=== PATIENT | male | born 1970 | race Caucasian/White ===

== ENCOUNTER → 2020-11-04 16:16 | Outpatient (CLI) | payer MEDICAID, SELFPAY | PROVIDERS: PCP Family Medicine; Referring Provider Family Medicine; Visit Provider Family Medicine | DX: R09.89 Other specified symptoms and signs involving the circulatory and respiratory systems (principal) | CPT/HCPCS: 87635; U0005; U0003 ==

== ENCOUNTER → 2023-04-11 | Outpatient (CLI) | payer MEDICAID, SELFPAY ==
--- NOTE | 2023-04-11 10:20 | RAD_ITS ---
STUDY: X-RAY - THORACIC SPINE REASON FOR EXAM: Male, 52 years old. CHRONIC THORACIC BACK PAIN TECHNIQUE: 3 view(s) of the thoracic spine were obtained. COMPARISON: None. FINDINGS: Normal kyphosis of the thoracic spine. There is no substantial scoliosis. Normal thoracic vertebrae and endplates. Normal disc space heights. The soft tissue structures are unremarkable. RAD/Thoracic Spine 3 Views IMPRESSION: Normal x-ray examination of the thoracic spine. Electronically Signed: Casimiro Morris MD at 10:34 EST ,
--- NOTE | 2023-04-11 10:20 | RAD_ITS ---
INDICATION: CHRONIC THORACIC BACK PAIN EXAMINATION/TECHNIQUE: X-RAY - XR Chest 2 Views COMPARISON: Thoracic spine radiograph dated April 11, 2023 FINDINGS: LINES/DEVICES: None. LUNGS: The lungs are hyperinflated. There is a vague round opacity within the left midlung. MEDIASTINUM AND CARDIOVASCULAR STRUCTURES: Cardiac silhouette not enlarged. Central airways and mediastinal contour are unremarkable. BONES AND SOFT TISSUES: Unremarkable. RAD/Chest PA and Lateral IMPRESSION: Vague round opacity within the left midlung that is likely secondary to compensation shadows however cannot exclude an underlying nodule or mass, recommend chest CT for further characterization. Hyperinflated lungs consistent with COPD. Electronically Signed: Sintia Valle MD at 18:05 EST ,
--- OUTSIDE RECORDS SUMMARY | 2023-04-11 19:21 | XMS RPT_ITS | CCD ---
Author Name Unknown Address [address] [facility] [address] [place] [address] Organization [facility] Care Team Providers Care Statistical Machine Mechanic Name Role Phone KENTON CLINE, CASSANDRA Contreras Primary Care Physician DR REYNA AGUILERA DO Attending Unavailable CASSANDRA FUNG MD Primary Care Unavailable Allergies Allergy Classification Reported Allergen(s) Allergy Type Date of Onset Reaction(s) Facility (2 sources) Penicillin; Translations: [penicillin] Drug Allergy [facility] Medications Current Medications Medication Drug Class(es) Dates Sig (Normalized) Sig (Original) acetaminophen 325 mg / HYDROcodone bitartrate 5 mg oral tablet (1 source) Opioid Agonist Start: 10-03-2021 End: 10-06-2021 take 1 tablet by mouth every six hours as needed for pain Sublette 325- 5 mg oral tablet Dose = 1 tab(s), Oral, q6h, PRN as needed for pain, X 3 day(s), # 12 tab(s), 0 Refill(s), Abdominal pain Colitis Start Date: 10/03/21 Stop Date: 10/06/21 Status: Ordered baclofen 20 mg oral tablet (1 source) gamma-Aminobutyric Acid-ergic Agonist Start: 02-20-2023 End: 02-25-2023 baclofen 20 mg oral tablet Dose : 20 mg = 1 tab(s), Oral, TID, # 15 tab(s), 0 Refill(s) Start Date: 02/20/23 Stop Date: 02/25/23 Status: Ordered ciprofloxacin 500 mg oral tablet (1 source) Quinolone Antimicrobial Start: 10-03-2021 End: 10-13-2021 Cipro 500 mg oral tablet Dose : 500 mg = 1 tab(s), Oral, q12h, X 10 day(s), # 20 tab(s), 0 Refill(s), 10/13/21 22:24:00 EDT, Abdominal pain Colitis Start Date: 10/03/21 Stop Date: 10/13/21 Status: Ordered dicyclomine hydrochloride 20 mg oral tablet (2 sources) Anticholinergic Start: 04-20-2019 take 1 tablet by mouth four times daily Bentyl use dicyclomine Dose : 20 mg =, Oral, QID, # 15 tab(s), 0 Refill(s) Start Date: 04/20/19 Status: Ordered docusate sodium 100 mg oral capsule (1 source) Start: 02-20-2023 Colace 100 mg oral capsule Dose : 100 mg = 1 cap(s), Oral, BID, # 20 cap(s), 0 Refill(s) Start Date: 02/20/23 Status: Ordered metroNIDAZOLE 500 mg oral tablet (1 source) Nitroimidazole Antimicrobial Start: 10-03-2021 End: 10-13-2021 metroNIDAZOLE 500 mg oral tablet Dose : 500 mg = 1 tab(s), Oral, q8h, X 10 day(s), # 30 tab(s), 0 Refill(s), 10/13/21 22:24:00 EDT, Abdominal pain Colitis Start Date: 10/03/21 Stop Date: 10/13/21 Status: Ordered ondansetron 4 mg disintegrating oral tablet (1 source) Serotonin-3 Receptor Antagonist Start: 10-03-2021 End: 10-07-2021 ondansetron 4 mg oral tablet, disintegrating Dose : 4 mg = 1 tab(s), Oral, q6h, X 4 day(s), # 16 tab(s), 0 Refill(s), 10/07/21 22:24:00 EDT, Abdominal pain Colitis Start Date: 10/03/21 Stop Date: 10/07/21 Status: Ordered Zofran ODT 4 mg oral tablet, disintegrating (2 sources) Start: 04-20-2019 Zofran ODT 4 mg oral tablet, disintegrating Dose : 4 mg = 1 tab(s), Oral, TID, # 10 tab(s), 0 Refill(s) Start Date: 04/20/19 Status: Ordered Problems Problem Classification Problem Date Documented Date Episodic/Chronic Abdominal pain (1 source) Abdominal pain; Translations: [Unspecified abdominal pain] Onset: 10-03-2021 Episodic Nausea and vomiting (1 source) Nausea; Translations: [Nausea] Onset: 10-03-2021 Episodic Noninfectious gastroenteritis (1 source) Noninfectious enteritis; Translations: [Noninfective gastroenteritis and colitis, unspecified] Onset: 10-03-2021 Episodic Results Test Name Value Interpretation Reference Range Facil ity Vital Signs Date Time Vital Sign Value Performing Clinician Eris yeager 02-20-2023 00:28-[address] REYNA AGUILERA DO [facility] 02-20-2023 00:28-0500 Body height 195.[address] REYNA AGUILERA DO [facility] 02-20-2023 00:28-0500 Body temperature 97.88 [degF] DR REYNA AGUILERA DO [facility] 02-20-2023 00:28-0500 Body weight [address] REYNA AGUILERA DO [facility] 02-20-2023 00:28-0500 Diastolic Blood Pressure Non-Invasive 74 mm[Hg] DR REYNA AGUILERA DO [facility] 02-20-2023 00:28-0500 Heart rate 55 /min DR REYNA AGUILERA DO [facility] 02-20-2023 00:28-0500 Respiratory rate 20 /min DR REYNA AGUILERA DO [facility] 02-20-2023 00:28-0500 Systolic Blood Pressure Non-Invasive 110 mm[Hg] DR REYNA AGUILERA DO [facility] 10-03-2021 22:55-0400 Diastolic blood pressure 79 mm[Hg] BALDOMERO HERNADEZ DO [facility] 10-03-2021 22:55-0400 Heart rate 51 /min BALDOMERO FROMMELT DO [facility] 10-03-2021 22:55-0400 Reason For Taking VItal Signs BALDOMERO FROMMELT DO [facility] 10-03-2021 22:55-0400 Respiratory rate 16 /min BALDOMERO FROMMELT DO [facility] 10-03-2021 22:55-0400 Systolic blood pressure 121 mm[Hg] BLADOMERO FROMMELT DO [facility] 10-03-2021 21:37-0400 Diastolic blood pressure 78 mm[Hg] BALDOMERO FROMMELT DO [facility] 10-03-2021 21:37-0400 Heart rate 52 /min BALDOMERO FROMMELT DO [facility] 10-03-2021 21:37-0400 Reason For Taking VItal Signs BALDOMERO FROMMELT DO [facility] 10-03-2021 21:37-0400 Respiratory rate 16 /min BALDOMERO FROMMELT DO [facility] 10-03-2021 21:37-0400 Systolic blood pressure 125 mm[Hg] BALDOMERO FROMMELT DO [facility] 10-03-2021 20:03-0400 Diastolic blood pressure 74 mm[Hg] BALDOMERO FROMMELT DO [facility] 10-03-2021 20:03-0400 Heart rate 46 /min BALDOMERO FROMMELT DO [facility] 10-03-2021 20:03-0400 Reason For Taking VItal Signs BALDOMERO FROMMELT DO [facility] 10-03-2021 20:03-0400 Respiratory rate 16 /min BALDOMERO HERNADEZ DO [facility] 10-03-2021 20:03-0400 Systolic blood pressure 116 mm[Hg] BALDOMERO HERNADEZ DO [facility] 10-03-2021 19:01-0400 Body temperature 98.42 [degF] BALDOMERO HERNADEZ DO [facility] 10-03-2021 19:01-0400 Heart rate 73 /[facility] Encounters Encounter Date Encounter Type Care Provider Facility Start: 02-20-2023 End: 02-20-2023 Emergency department patient visit DR REYNA AGUILERA DO [facility] Start: 02-19-2023 End: 02-20-2023 Emergency department patient visit DR REYNA AGUILERA DO Facility:B Start: 10-03-2021 End: 10-03-2021 Emergency department patient visit BALDOMERO HERNADEZ DO [facility] Payers Date Payer Category Payer Private Health Insurance [id number] 1970 Unknown [id number] Social History Date Type Detail Facility Start: 04-20-2019 Tobacco smoking status Heavy t obacco smoker (finding) [facility] Sex Assigned At Male [facility] Functional Status Date Assessment Result Facility 02-20-2023 Functional Status Independent [facility] 10-03-2021 Functional Status Activity Jet tance Independent [facility] 10-03-2021 Functional Status Standard Safet y ID band on, Allergy Band on, Call device within reach, Bed in low position, Wheels locked, Upper/Half-Length side-rails up, Bedside Cart Locked, Visitor at bedside, Safety level maintained [facility] 10-03-2021 [facility] Mental Status Date Assessment Result Facility 02-20-2023 Mental Status Orientation Oriented x 4 [facility] 02-20-2023 Mental [facility] 10-03-2021 Mental Status Orientation Oriented x 4 [facility] 10-03-2021 Mental [facility] 10-03-[facility]21 Mental Status [facility] Hospital Discharge instructions 02-20-2023 Note Date & Type Note Facility 02-20-2023 Hospital Discharg e instructions Patient Education 02/20/2023 01:00:27 How a Hernia Develops How a Hernia Develops Although a hernia bulge may appear suddenly, hernias often take years to develop. They grow larger as pressure inside the body presses the intestines or other tissues out through a weak area in the abdominal wall, often at the belly button or a site of previous surgery. With time, these tissues can bulge out beneath the skin. Stages of hernia development The wall weakens or tears. The abdominal lining bulges out through a weak area and begins to form a hernia sac. The sac may contain fat, intestine, or other tissues. At this point, the hernia may or may not cause a visible bulge. The intestine pushes into the sac. As the intestine pushes further into the sac, it forms a visible bulge. The bulge may flatten when you lie down or push against it. This is called a reducible hernia and does not cause any immediate danger. The intestine may become trapped. The sac containing the intestine may become trapped by muscle (incarcerated). If this happens, you won t be able to flatten the bulge. You may also have pain. Prompt treatment is needed. The intestine may become strangulated. If the intestine is tightly trapped, it becomes strangulated. The strangulated area loses blood supply and may . This can cause severe pain and block the intestine. Emergency surgery is needed. [id number] [employer]. [address] [place] [address], [place] [address]. All rights reserved. This information is not intended as a substitute for professional medical care. Always follow your healthcare professional's instructions. Follow Up Care 02/20/2023 00:06:49 With:JOSSY STALLINGS MD, KAYLAN/oJse D, Surgery Address: [address] [id number] When:2-4 days With:CASSANDRA FUNG MD Address: [facility] [address] [place] [address]- When:2-4 days [facility] Clinical Note 02-20-2023 Note Date & Type Note Facility 02-20-2023 Note Discharge Instructions Thank you for allowing [facility] to assist you with your healthcare needs. The following is important discharge information regarding your hospital visit. Diagnosis from Today's Visit Groin pain Hip pain-swelling What to Do Next Instructions from Your Care Team No qualifying data available. Post Acute Orders No qualifying data available. You Need to Schedule the Following Appointments Follow Up with JOSSY STALLINGS MD, KAYLAN/Jose D, Surgery When Within 2-4 days Where: [address] [phone] Follow Up with CASSANDRA FUNG MD When Within 2-4 days Where: [facility] [address] [place] [address]- Allergies penicillin Medications Please ask your primary doctor or pharmacist before taking any other medication not listed, including over the counter drugs, herbal medications, vitamins and or supplements as they may interact with your home medications. What How Much When Instructions Last Dose New baclofen (baclofen 20 mg oral tablet) 1 tab(s) by mouth Three (3) times a day Duration: 5 Days Printed Prescription New docusate (Colace 100 mg oral capsule) 1 cap by mouth Two (2) times a day Printed Prescription Unchanged dicyclomine (Bentyl use dicyclomine ) 20 Milligram by mouth Four (4) times a day Unchanged ondansetron (Zofran ODT 4 mg oral tablet, disintegrating) 1 tab(s) by mouth Three (3) times a day Please take this list to your next doctor s visit. Bring all medications you take, including over the counter medications, herbals and other supplements with you to your doctor s visit. Patients and families are reminded to discard old lists and to update any records with all medication providers or retail pharmacies. Medication Leaflets baclofen (oral) (EVA margaux fen) Fleqsuvy, Lyvispah, Ozobax What is the most important information I should know about baclofen? Use only as directed. Tell your doctor if you use other medicines or have other medical conditions or allergies. What is baclofen? Baclofen is used in adults and children at least 12 years old to treat muscle pain, spasms, and stiffness in people with multiple sclerosis or spinal cord injury or disease. Baclofen may also be used for purposes not listed in this medication guide. What should I discuss with my healthcare provider before taking baclofen? You should not use baclofen if you are allergic to it. Tell your doctor if you have ever had: mental illness or psychosis; epilepsy or other seizure disorder; problems with balance; high blood pressure, or fast heart rate; a stroke or blood clot; or kidney disease. Using baclofen may increase your risk of developing an ovarian cyst. Talk with your doctor about your own risk. Tell your doctor if you are or plan to become , or or plan to breastfeed. If you take baclofen while or , withdrawal symptoms such as tremors, stiff muscles, or seizure may occur in the baby. How should I take baclofen? Follow all directions on your prescription label and read all medication guides or instruction sheets. Your doctor may occasionally change your dose. Use the medicine exactly as directed. Shake the oral suspension (liquid). Measure a dose with the supplied measuring device (not a kitchen spoon). Shake and pour the entire oral granules packet to dissolve in your mouth or swallow whole at once, with or without liquids. You may also mix the granules with liquids (milk, or apple juice) or soft food (apple sauce, yogurt, or pudding). The oral granules can also be given through a feeding tube. Ask your doctor or pharmacist if you do not understand these instructions. Call your doctor if your symptoms do not improve, or if they get worse. You may have withdrawal symptoms if you stop using baclofen suddenly. Ask your doctor before stopping the medicine. Store the oral suspension (liquid) at room temperature away from moisture and heat. Throw Fleqsuvy away after 2 months of first opening. Store Ozobax in the refrigerator, do not freeze. What happens if I miss a dose? Take the medicine as soon as you can, but skip the missed dose if it is almost time for your next dose. Do not take two doses at one time. What happens if I overdose? Seek emergency medical attention or call the Poison Help line at . Overdose symptoms may include increasing drowsiness, dizziness, sleepiness, trouble focusing on objects, shallow breathing, seizure, or muscle weakness leading to loss of consciousness. What should I avoid while taking baclofen? Avoid drinking alcohol. Avoid driving or hazardous activity until you know how this medicine will affect you. Your reactions could be impaired. Do not share this medicine with another person, even if they have the same symptoms you have. What are the possible side effects of baclofen? Get emergency medical help if you have signs of an allergic reaction: hives; difficult breathing; swelling of your face, lips, tongue, or throat. Call your doctor at once if you have: severe drowsiness, breathing problems; confusion, hallucinations; muscle weakness, itching, tingling, or twitching in your hands, arms, feet, or legs; or fever. Common side effects may include: drowsiness, dizziness, weakness, or tiredness. This is not a complete list of side effects and others may occur. Call your doctor for medical advice about side effects. You may report side effects to FDA at 4-518-WME-1078. What other drugs will affect baclofen? Using baclofen with other drugs that make you drowsy can worsen this effect. Ask your doctor before using opioid medication, a sleeping pill, a muscle relaxer, or medicine for anxiety or seizures. Other drugs may affect baclofen, including prescription and figp-oyi-lcazezs medicines, vitamins, and herbal products. Tell your doctor about all other medicines you use. Where can I get more information? Your doctor or pharmacist can provide more information about baclofen. Remember, keep this and all other medicines out of the reach of children, never share your medicines with others, and use this medication only for the indication prescribed. Every effort has been made to ensure that the information provided by [employer]. ('[employer]') is accurate, up-to-date, and complete, but no guarantee is made to that effect. Drug information contained herein may be time sensitive. [employer] information has been compiled for use by healthcare practitioners and consumers in the [place] and therefore [employer] does not warrant that uses outside of the [place] are appropriate, unless specifically indicated otherwise. [employer] drug information does not endorse drugs, diagnose patients or recommend therapy. [employer] drug information is an informational resource designed to assist licensed healthcare practitioners in caring for their patients and/or to serve consumers viewing this service as a supplement to, and not a substitute for, the expertise, skill, knowledge and judgment of healthcare practitioners. The absence of a warning for a given drug or drug combination in no way should be construed to indicate that the drug or drug combination is safe, effective or appropriate for any given patient. [employer] does not assume any responsibility for any aspect of healthcare administered with the aid of information [employer] provides. The information contained herein is not intended to cover all possible uses, directions, precautions, warnings, drug interactions, allergic reactions, or adverse effects. If you have questions about the drugs you are taking, check with your doctor, nurse or pharmacist. Copyright 5448-9292 [employer]. Version: 11.13. Revision Date: 10/17/2022. docusate (oral/rectal) (DOK ue sate) Colace, Colace Clear, Docu Soft, Doculase, Docusate Mini, DocuSol Kids, DOK, DSS, Dulcolax Stool Softener, Enemeez Mini, Pedia-Lax Stool Softener, Rodriguez Stool Softener, Silace, Simon-Q-Lax What is the most important information I should know about docusate? You should not use docusate if you also use mineral oil, unless your doctor tells you to. What is docusate? Docusate is a stool softener that makes bowel movements softer and easier to pass. Docusate is used to relieve occasional constipation (irregularity). There are many brands and forms of docusate available. Not all brands are listed on this leaflet. Docusate may also be used for purposes not listed in this medication guide. What should I discuss with my healthcare provider before using docusate? You should not use docusate if you are allergic to it. Ask a doctor or pharmacist if this medicine is safe to use if you have: stomach pain; nausea; vomiting; or a sudden change in bowel habits that lasts over 2 weeks. Ask a doctor before using this medicine if you are or . Do not give this medicine to a child without medical advice. How should I use docusate? Use exactly as directed on the label, or as prescribed by your doctor. Drink plenty of liquids while you are using docusate. Measure liquid medicine carefully. Use the dosing syringe provided, or use a medicine dose-measuring device (not a kitchen spoon). Do not take the rectal enema by mouth. Rectal medicine is for use only in the rectum. Wash your hands before and after using the enema. To use the enema, lie on your left side with your left leg extended and your right leg slightly bent. Remove the cap from the applicator tip and gently insert the tip into your rectum. Slowly squeeze the bottle to empty the contents into the rectum. After using the enema, lie down on your left side for at least 30 minutes to allow the liquid to distribute throughout your intestines. Avoid using the bathroom, and hold in the enema at least 1 hour, or all night if possible. Read and carefully follow any Instructions for Use provided with your medicine. Ask your doctor or pharmacist if you do not understand these instructions. Docusate generally produces bowel movement in 12 to 72 hours. Call your doctor if your symptoms do not improve after 72 hours. You should not use docusate for longer than 1 week, unless your doctor tells you to. Store at room temperature away from moisture, light, and heat. Do not freeze liquid medicine. What happens if I miss a dose? Since docusate is used when needed, you may not be on a dosing schedule. Skip any missed dose if it's almost time for your next dose. Do not use two doses at one time. What happens if I overdose? Seek emergency medical attention or call the Poison Help line at . What should I avoid while using docusate? Avoid using mineral oil, unless told to do so by a doctor. What are the possible side effects of docusate? Get emergency medical help if you have signs of an allergic reaction: hives; difficult breathing; swelling of your face, lips, tongue, or throat. Stop using docusate and call your doctor at once if: you have rectal bleeding; no bowel movement occurs after using a laxative; you need to use a stool softener for more than 1 week; or rash occurs. Less serious side effects may be more likely, and you may have none at all. This is not a complete list of side effects and others may occur. Call your doctor for medical advice about side effects. You may report side effects to FDA at 8-828-DHT-5822. What other drugs will affect docusate? Other drugs may affect docusate, including prescription and kzqj-xwb-rwutxix medicines, vitamins, and herbal products. Tell your doctor about all other medicines you use. Where can I get more information? Your pharmacist can provide more information about docusate. Remember, keep this and all other medicines out of the reach of children, never share your medicines with others, and use this medication only for the indication prescribed. Every effort has been made to ensure that the information provided by [employer]. ('[employer]') is accurate, up-to-date, and complete, but no guarantee is made to that effect. Drug information contained herein may be time sensitive. [employer] information has been compiled for use by healthcare practitioners and consumers in the [place] and therefore [employer] does not warrant that uses outside of the [place] are appropriate, unless specifically indicated otherwise. [employer] drug information does not endorse drugs, diagnose patients or recommend therapy. [employer] drug information is an informational resource designed to assist licensed healthcare practitioners in caring for their patients and/or to serve consumers viewing this service as a supplement to, and not a substitute for, the expertise, skill, knowledge and judgment of healthcare practitioners. The absence of a warning for a given drug or drug combination in no way should be construed to indicate that the drug or drug combination is safe, effective or appropriate for any given patient. [employer] does not assume any responsibility for any aspect of healthcare administered with the aid of information [employer] provides. The information contained herein is not intended to cover all possible uses, directions, precautions, warnings, drug interactions, allergic reactions, or adverse effects. If you have questions about the drugs you are taking, check with your doctor, nurse or pharmacist. Copyright 4411-0448 [employer]. Version: 7.01. Revision Date: 09/08/2022. Education Materials How a Hernia Develops Although a hernia bulge may appear suddenly, hernias often take years to develop. They grow larger as pressure inside the body presses the intestines or other tissues out through a weak area in the abdominal wall, often at the belly button or a site of previous surgery. With time, these tissues can bulge out beneath the skin. Stages of hernia development The wall weakens or tears. The abdominal lining bulges out through a weak area and begins to form a hernia sac. The sac may contain fat, intestine, or other tissues. At this point, the hernia may or may not cause a visible bulge. The intestine pushes into the sac. As the intestine pushes further into the sac, it forms a visible bulge. The bulge may flatten when you lie down or push against it. This is called a reducible hernia and does not cause any immediate danger. The intestine may become trapped. The sac containing the intestine may become trapped by muscle (incarcerated). If this happens, you won t be able to flatten the bulge. You may also have pain. Prompt treatment is needed. The intestine may become strangulated. If the intestine is tightly trapped, it becomes strangulated. The strangulated area loses blood supply and may . This can cause severe pain and block the intestine. Emergency surgery is needed. [id number] [employer]. [address] [place] [address]. All rights reserved. This information is not intended as a substitute for professional medical care. Always follow your healthcare professional's instructions. Additional Information VACCINATE! IT SAVES LIVES! Members of the community who have not yet received the COVID-19 vaccine and would like to receive it can visit one of [facility] vaccine clinics. There are many vaccine clinic locations within the [facility]. For locations and available times, please visit [email or web address] It is important to note that some COVID mobile vaccine clinics are held outdoors and may be canceled in rainy or stormy conditions. To learn more about pediatric vaccinations (ages 5-11), we invite you to visit the [facility] webpage. https://www.[employer]ials.org/pages/2 750-Pnrcz-Fcpeulkobdm-Frequently-Asked -Questions.html To learn more about the COVID-19 vaccine, we invite you to visit the CDC website for a list of frequently asked questions. https://www.cdc.gov/coronavirus/2019-n cov/vaccines/faq.html [employer] Patient Portal Access Instructions: Stay connected with your healthcare team and access your personal medical information anytime with the [employer] Patient Portal. If you would like a full copy of your medical records please contact the [facility] Medical Records Department Sunday through Sunday between 8a.m. and 4:30p.m. Please follow the directions below to access the portal: 1.Access the email account you provided upon registration to the hospital.2.Look for an invitation email from [facility].3.Open the email and access the invitation link: Accept Invitation to [employer]4.Fill in the required liang to create your account. Sign into [email or web address] with your username and password that you created in the above steps to stay up to date. You can then view a summary of results, a summary of your visits, and the ability to download your summaries to your computer or send the information securely to a physician. Remember that your healthcare information is confidential, so carefully consider who you will allow to register on the [employer] Patient Portal for access to your information. You can also access the [employer] Patient Portal on the [facility] jennifer. Simply click on Health Records under Health Data and then click on the [employer] logo. HOW TO SAFELY DISPOSE OF PRESCRIPTION MEDICATIONS Please use one of the following methods to safely dispose of your unused medications. 1.Use a drug disposal kit: the drug disposal pouch allows you to safely discard your old and unused drugs. Ask your nurse to give you one when you are discharged.2.Visit a local take-back location: Many local pharmacies and police departments have programs that collect old and unwanted prescription drugs. Call your local pharmacy or go to http://Jaree.Pulmologix/9A2Ch8g to find one close to you.3.Make use of household items: Use cat litter or old coffee grounds to dispose medications if other options are not available. Mix your drugs with these household products, seal them in an airtight container and throw it into the garbage. Call [facility]: [phone] to be sure your drugs can be disposed of in this way. Some medicines may require a different approach.4.Never flush your medications down the toilet. IF YOU HAVE BEEN PRESCRIBED AN OPIOIDS FOR PAIN If you have been prescribed an opioid (such as hydrocodone, oxycodone or morphine), it is critical to understand the possible side effects and risks of opioid pain medications. Even when taken as directed, opioids can have several side effects including: Tolerance, meaning you might need to take more of a medication for the same pain relief. Nausea, vomiting and/or constipation. Sleepiness, dizziness, dry mouth, confusion, depression or itching. Physical dependence, meaning you have withdrawal symptoms when a medication is stopped ? this can develop within a few days. KNOW YOUR RESPONSIBILITIES It is important to know exactly how much and how often to take the opioid pain medications you are prescribed. Never take opioids in higher amounts or more often than prescribed. Do not combine opioids with alcohol or other drugs that cause drowsiness, such as benzodiazepines, also known as benzos, including diazepam and alprazolam, muscle relaxants or sleep aids. Never sell or share prescription opioids. This is illegal. Store opioids in a secure place and out of reach of others (including children, family, friends and visitors). The last page(s) of this document has been signed and retained as a CHART COPY Signatures Patient Education Materials How a Hernia Develops Medication Leaflets baclofen (oral), docusate (oral/rectal) My discharge plan and instructions have been reviewed and explained to me and IASIYA CHET understand my current condition and have read and understand these discharge instructions. I have received a written copy of the plan/instructions. If I have questions, I am aware that I should contact my doctor. Patient/Foundry Worker Signature: _ Date/Time: Relationship to Patient: Witness Name/Signature: Date/Time: [facility] Discharge instructions 10-04-2021 Note Date & Type Note Facility 10-04-2021 Hospital Discharg e instructions Patient Education 10/03/2021 22:25:13 Diverticulitis Diverticulitis Some people get pouches along the wall of the colon as they get older. The pouches, called diverticuli, usually cause no symptoms. If the pouches become blocked, you can get an infection. This infection is called diverticulitis. It causes pain in your lower abdomen and fever. If not treated, it can become a serious condition, causing an abscess to form inside the pouch. The abscess may block the intestinal tract even or rupture, spreading infection throughout the abdomen. When treatment is started early, oral antibiotics alone may be enough to cure diverticulitis. This method is tried first. But, if you don't improve or if your condition gets worse while using oral antibiotics, you may need to be admitted to the hospital for IV antibiotics. Severe cases may require surgery. Home care The following guidelines will help you care for yourself at home: During the acute illness, rest and follow your healthcare provider's instructions about diet. Sometimes you will need to follow a clear liquid diet to rest your bowel. Once your symptoms are better, you may be told to follow a low-fiber diet for some time. Include foods like: oFlake cereal, mashed potatoes, pancakes, waffles, pasta, white bread, rice, applesauce, bananas, eggs, fish, poultry, tofu, and cooked soft vegetables Take antibiotics exactly as instructed. Don't miss any doses or stop taking the medication, even if you feel better. Monitor your temperature and tell your healthcare provider if you have rising temperatures. Preventing future attacks Once you have an episode of diverticulitis, you are at risk for having it again. After you have recovered from this episode, you may be able to lower your risk by eating a high-fiber diet (20 gm/day to 35 gm/day of fiber). This cleans out the colon pouches that already exist and may prevent new ones from forming. Foods high in fiber include fresh fruits and edible peelings, raw or lightly cooked vegetables, whole grain cereals and breads, dried beans and peas, and bran. Other steps that can help prevent future attacks include: Take your medicines, such as antibiotics, as your healthcare provider says. Drink 6 to 8 glasses of water every day, unless told otherwise. Use a heating pad or hot water bottle to help abdominal cramping or pain. Begin an exercise program. Ask your healthcare provider how to get started. You can benefit from simple activities such as walking or gardening. Treat diarrhea with a bland diet. Start with liquids only; then slowly add fiber over time. Watch for changes in your bowel movements (constipation to diarrhea). Avoid constipation by eating a high fiber diet and taking a stool softener if needed. Get plenty of rest and sleep. Follow-up care Follow up with your healthcare provider as advised or sooner if you are not getting better in the next 2 days. When to seek medical advice Call your healthcare provider right away if any of these occur: Fever of 100.4 F (38 C) or higher, or as directed by your healthcare provider Repeated vomiting or swelling of the abdomen Weakness, dizziness, light-headedness Pain in your abdomen that gets worse, severe, or spreads to your back Pain that moves to the right lower abdomen Rectal bleeding (stools that are red, black or maroon color) Unexpected vaginal bleeding [id number] [employer]. [address] [place] [address]. All rights reserved. This information is not intended as a substitute for professional medical care. Always follow your healthcare professional's instructions. Follow Up Care 10/03/2021 18:50:42 With:ARTIS LEE MD Address: [facility] [address] [place] [phone] When:2-4 days With:CASSANDRA FUNG MD Address: [facility] [address] [place] [address]- When:2-4 days [facility] Emergency department Discharge summary 10-03-2021 Note Date & Type Note Facility 10-03-2021 Emergency department Discharge summary Discharge Instructions Thank you for allowing [facility] to assist you with your healthcare needs. The following is important discharge information regarding your hospital visit. Diagnosis from Today's Visit Abdominal pain Colitis Nausea Vomiting What to Do Next Instructions from Your Care Team No qualifying data available. Post Acute Orders No qualifying data available. You Need to Schedule the Following Appointments Follow Up with ARTIS LEE MD When Within 2-4 days Where: [facility] [address] [place] [address]- [phone] Follow Up with CASSANDRA FUNG MD When Within 2-4 days [facility] [address] [place] [address]- Allergies penicillin Medications Please ask your primary doctor or pharmacist before taking any other medication not listed, including over the counter drugs, herbal medications, vitamins and or supplements as they may interact with your home medications. What How Much When Why Instructions Last Dose New acetaminophen-hydrocodone (Sublette 325- 5 mg oral tablet) 1 tab(s) by mouth Every 6 hours as needed for as needed for pain Abdominal pain Colitis Duration: 3 Days Printed Prescription New ciprofloxacin (Cipro 500 mg oral tablet) 1 tab(s) by mouth Every 12 hours Abdominal pain Colitis Duration: 10 Days Printed Prescription New metroNIDAZOLE (metroNIDAZOLE 500 mg oral tablet) 1 tab(s) by mouth Every 8 hours Abdominal pain Colitis Duration: 10 Days Printed Prescription Changed ondansetron (ondansetron 4 mg oral tablet, disintegrating) 1 tab(s) by mouth Every 6 hours Abdominal pain Colitis Duration: 4 Days Printed Prescription Changed ondansetron (Zofran ODT 4 mg oral tablet, disintegrating) 1 tab(s) by mouth Three (3) times a day Unchanged dicyclomine (Bentyl use dicyclomine ) 20 Milligram by mouth Four (4) times a day Please take this list to your next doctor s visit. Bring all medications you take, including over the counter medications, herbals and other supplements with you to your doctor s visit. Patients and families are reminded to discard old lists and to update any records with all medication providers or retail pharmacies. Education Materials Diverticulitis Some people get pouches along the wall of the colon as they get older. The pouches, called diverticuli, usually cause no symptoms. If the pouches become blocked, you can get an infection. This infection is called diverticulitis. It causes pain in your lower abdomen and fever. If not treated, it can become a serious condition, causing an abscess to form inside the pouch. The abscess may block the intestinal tract even or rupture, spreading infection throughout the abdomen. When treatment is started early, oral antibiotics alone may be enough to cure diverticulitis. This method is tried first. But, if you don't improve or if your condition gets worse while using oral antibiotics, you may need to be admitted to the hospital for IV antibiotics. Severe cases may require surgery. Home care The following guidelines will help you care for yourself at home: During the acute illness, rest and follow your healthcare provider's instructions about diet. Sometimes you will need to follow a clear liquid diet to rest your bowel. Once your symptoms are better, you may be told to follow a low-fiber diet for some time. Include foods like: oFlake cereal, mashed potatoes, pancakes, waffles, pasta, white bread, rice, applesauce, bananas, eggs, fish, poultry, tofu, and cooked soft vegetables Take antibiotics exactly as instructed. Don't miss any doses or stop taking the medication, even if you feel better. Monitor your temperature and tell your healthcare provider if you have rising temperatures. Preventing future attacks Once you have an episode of diverticulitis, you are at risk for having it again. After you have recovered from this episode, you may be able to lower your risk by eating a high-fiber diet (20 gm/day to 35 gm/day of fiber). This cleans out the colon pouches that already exist and may prevent new ones from forming. Foods high in fiber include fresh fruits and edible peelings, raw or lightly cooked vegetables, whole grain cereals and breads, dried beans and peas, and bran. Other steps that can help prevent future attacks include: Take your medicines, such as antibiotics, as your healthcare provider says. Drink 6 to 8 glasses of water every day, unless told otherwise. Use a heating pad or hot water bottle to help abdominal cramping or pain. Begin an exercise program. Ask your healthcare provider how to get started. You can benefit from simple activities such as walking or gardening. Treat diarrhea with a bland diet. Start with liquids only; then slowly add fiber over time. Watch for changes in your bowel movements (constipation to diarrhea). Avoid constipation by eating a high fiber diet and taking a stool softener if needed. Get plenty of rest and sleep. Follow-up care Follow up with your healthcare provider as advised or sooner if you are not getting better in the next 2 days. When to seek medical advice Call your healthcare provider right away if any of these occur: Fever of 100.4 F (38 C) or higher, or as directed by your healthcare provider Repeated vomiting or swelling of the abdomen Weakness, dizziness, light-headedness Pain in your abdomen that gets worse, severe, or spreads to your back Pain that moves to the right lower abdomen Rectal bleeding (stools that are red, black or maroon color) Unexpected vaginal bleeding [id number] [employer]. [address] [place] [address]. All rights reserved. This information is not intended as a substitute for professional medical care. Always follow your healthcare professional's instructions. Additional Information VACCINATE! IT SAVES LIVES! Members of the community who have not yet received the COVID-19 vaccine and would like to receive it can visit one of [facility] vaccine clinics. There are many vaccine clinic locations within the [facility]. For locations and available times, please visit [email or web address]. It is important to note that some COVID mobile vaccine clinics are held outdoors and may be canceled in rainy or stormy conditions. To learn more about pediatric vaccinations (ages 5-11), we invite you to visit the [facility] webpage. https://www.[facility].org/pa ges/6974-Sgcct-Ixzyvkbngrh-Freque fgag-Qicso-Qvwplnwsp.html To learn more about the COVID-19 vaccine, we invite you to visit the [facility] website for a list of frequently asked questions. [email or web address]/assets/Eri ud-bny-Lqmdcmnz/mwgdg-[email or web address]-Sqv quently_Asked-Questions.pdf [facility] Patient Portal Access Instructions: Stay connected with your healthcare team and access your personal medical information anytime with the [facility] Patient Portal. If you would like a full copy of your medical records please contact the [facility] Medical Records Department Sunday through Sunday between 8a.m. and 4:30p.m. Please follow the directions below to access the portal: 1.Access the email account you provided upon registration to the [facility].2.Look for an invitation email from [facility].3.Open the email and access the invitation link: Accept Invitation to [employer]4.Fill in the required liang to create your account. Sign into [email or web address] with your username and password that you created in the above steps to stay up to date. You can then view a summary of results, a summary of your visits, and the ability to download your summaries to your computer or send the information securely to a physician. Remember that your healthcare information is confidential, so carefully consider who you will allow to register on the [employer] Patient Portal for access to your information. You can also access the [employer] Patient Portal on the [employer]. Simply click on Health Records under Health Data and then click on the [employer] logo. HOW TO SAFELY DISPOSE OF PRESCRIPTION MEDICATIONS Please use one of the following methods to safely dispose of your unused medications. 1.Use a drug disposal kit: the drug disposal pouch allows you to safely discard your old and unused drugs. Ask your nurse to give you one when you are discharged.2.Visit a local take-back location: Many local pharmacies and police departments have programs that collect old and unwanted prescription drugs. Call your local pharmacy or go to http://Jaree.Pulmologix/8Q0Ac0q to find one close to you.3.Make use of household items: Use cat litter or old coffee grounds to dispose medications if other options are not available. Mix your drugs with these household products, seal them in an airtight container and throw it into the garbage. Call [facility]: [phone] to be sure your drugs can be disposed of in this way. Some medicines may require a different approach.4.Never flush your medications down the toilet. IF YOU HAVE BEEN PRESCRIBED AN OPIOIDS FOR PAIN If you have been prescribed an opioid (such as hydrocodone, oxycodone or morphine), it is critical to understand the possible side effects and risks of opioid pain medications. Even when taken as directed, opioids can have several side effects including: Tolerance, meaning you might need to take more of a medication for the same pain relief. Nausea, vomiting and/or constipation. Sleepiness, dizziness, dry mouth, confusion, depression or itching. Physical dependence, meaning you have withdrawal symptoms when a medication is stopped ? this can develop within a few days. KNOW YOUR RESPONSIBILITIES It is important to know exactly how much and how often to take the opioid pain medications you are prescribed. Never take opioids in higher amounts or more often than prescribed. Do not combine opioids with alcohol or other drugs that cause drowsiness, such as benzodiazepines, also known as benzos, including diazepam and alprazolam, muscle relaxants or sleep aids. Never sell or share prescription opioids. This is illegal. Store opioids in a secure place and out of reach of others (including children, family, friends and visitors). The last page(s) of this document has been signed and retained as a CHART COPY Signatures Patient Education Materials Diverticulitis Medication Leaflets My discharge plan and instructions have been reviewed and explained to me and I,NEREIDA BRADEN understand my current condition and have read and understand these discharge instructions. I have received a written copy of the plan/instructions. If I have questions, I am aware that I should contact my doctor. Patient/Foundry Worker Signature: Date/Time: Relationship to Patient: ____ Witness Name/Signature: Date/Time: [facility] Clinical Note 10-03-2021 Note Date & Type Note Facility 10-03-2021 Note ORIGINAL EXAMINATION: CT OF THE ABDOMEN AND PELVIS WITH CONTRAST 10/03/2021 8:48 pm TECHNIQUE: CT of the abdomen and pelvis was performed with the administration of intravenous contrast. Multiplanar reformatted images are provided for review. Automated exposure control, iterative reconstruction, and/or weight based adjustment of the mA/kV was utilized to reduce the radiation dose to as low as reasonably achievable. COMPARISON: CT abdomen pelvis 04/20/2019. 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 This has been stable since prior exam from 2019. Focal fatty infiltration along the falciform ligament. Otherwise, the liver, gallbladder, spleen, adrenal glands, pancreas are unremarkable. There are bilaterally symmetric nephrograms without hydronephrosis. Unremarkable bladder and prostate gland. Presumed vasectomy postprocedural changes. Lack of mesenteric fat limits evaluation of this exam. The small and large bowel are of normal caliber. The appendix is not definitely visualized. Question mild pericolonic inflammatory stranding along the descending colon. No free air. No pathologically enlarged lymph nodes. The aorta is nonaneurysmal. The IVC is distended, most likely secondary to patient's hydration status. No acute osseous abnormality. IMPRESSION: Suspect mild pericolonic inflammatory stranding along descending colon which can be seen in the setting of mild colitis, correlate for any symptoms. I have personally reviewed the images of this examination and agree with the resident's findings and interpretation. Interpreted by: Carlos Lazcano Preliminary Report By: Angel Toledo Electronically signed By Carlos Lazcano Dictated Date: 10/03/2021 10:04:25 PM Prelim Date: 10/03/2021 10:16:14 PM Sign Date: 10/03/2021 10:39:21 PM Ordering Provider: [facility] [address] [facility] Clinical Note 10-03-2021 Note Date & Type Note Facility 10-03-2021 Note ORIGINAL EXAMINATION: CT OF THE ABDOMEN AND PELVIS WITH CONTRAST 10/03/2021 8:48 pm TECHNIQUE: CT of the abdomen and pelvis was performed with the administration of intravenous contrast. Multiplanar reformatted images are provided for review. Automated exposure control, iterative reconstruction, and/or weight based adjustment of the mA/kV was utilized to reduce the radiation dose to as low as reasonably achievable. COMPARISON: CT abdomen pelvis 04/20/2019. 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 This has been stable since prior exam from 2019. Focal fatty infiltration along the falciform ligament. Otherwise, the liver, gallbladder, spleen, adrenal glands, pancreas are unremarkable. There are bilaterally symmetric nephrograms without hydronephrosis. Unremarkable bladder and prostate gland. Presumed vasectomy postprocedural changes. Lack of mesenteric fat limits evaluation of this exam. The small and large bowel are of normal caliber. The appendix is not definitely visualized. Question mild pericolonic inflammatory stranding along the descending colon. No free air. No pathologically enlarged lymph nodes. The aorta is nonaneurysmal. The IVC is distended, most likely secondary to patient's hydration status. No acute osseous abnormality. IMPRESSION: Suspect mild pericolonic inflammatory stranding along descending colon which can be seen in the setting of mild colitis, correlate for any symptoms. I have personally reviewed the images of this examination and agree with the resident's findings and interpretation. Interpreted by: Carlos Lazcano Preliminary Report By: Angel Toledo Electronically signed By Carlos Lazcano Dictated Date: 10/03/2021 10:04:25 PM Prelim Date: 10/03/2021 10:16:14 PM Sign Date: 10/03/2021 10:39:21 PM Ordering Provider: BALDOMERO HERNADEZ [facility] Evaluation + Plan note Note Date & Type Note Facility Evaluation + Plan note No data available for this section [facility] Note Note Date & Type Note Facility Note BALDOMERO HERNADEZ DO: SIGN, VERIFY Event Display: EKG [ED AOH] - CV Authored Date: [id number] [facility] Summary note Note Date & Type Note Facility Summary note PARTHA Mahan: PERFORM Event Display: Patient Summary Documents Authored Date: [id number] [facility] Summary Purpose Family History No Family History Records Found Advance Directives No Advanced Directives Records Found Additional Source Comments Care Team (unrecognized sect ion and content) Care Team Personnel Name: CASSANDRA FUNG MD Member Role: Primary Care Physician Address: Address: [facility] [address] [place], [place] [address] Name: BALDOMERO HERNADEZ DO Position: ED Physician Member Role: ED Physician Address: Address: [address] [place] [address]- Name: Kellen Aguilar RN Position: ED RN Member Role: ED RN Patient Care team informatio n (unrecognized section and content) Care Team Personnel Name: CASSANDRA UFNG MD Member Role: Primary Care Physician Address: Address: [facility] [address] [place], [place] [address] Name: REYNA AGUILERA DO Position: ED Physician Member Role: ED Physician Address: Address: [facility] [address] [place] [address]- (unrecognized sect ion and content) No Status Records Found INFORMATION SOURCE (unrecogn ized section and content) FOR RECORDS PERTAINING TO PATIENTS WHO ARE OR HAVE BEEN ENROLLED IN A CHEMICAL DEPENDENCY/SUBSTANCEABUSE PROGRAM, SOME INFORMATION MAY BE OMITTED. This clinical summary was aggregated from multiple sources. Caution should be exercised in using it in the provision of clinical care. This summary normalizes information from multiple sources, and as a consequence, information in this document may materially change the coding, format and clinical context of patient data. In addition, data may be omitted in some cases. CLINICAL DECISIONS SHOULD BE BASED ON THE PRIMARY CLINICAL RECORDS. [facility] [employer] provides no warranty or guarantee of the accuracy or completeness of information in this document.
== END | disposition home or self-care (01) ==
PROVIDERS: PCP Family Medicine; Referring Provider Family Medicine; Visit Provider Family Medicine
DX: M54.6 Pain in thoracic spine (principal); G89.29 Other chronic pain
CPT/HCPCS: 71046; 72072

== ENCOUNTER → 2023-04-28 | Outpatient (CLI) | payer MEDICAID, SELFPAY ==
--- NOTE | 2023-04-28 08:05 | CT_ITS ---
INDICATION: Left-sided chest and back pain EXAMINATION: CT CHEST WITHOUT CONTRAST - CT Chest W/O Contrast Injection TECHNIQUE: Helically acquired images were obtained of the chest. A radiation dose optimization technique was used for this scan. IV Contrast dosage and agent: None. COMPARISON: Previous plain films FINDINGS: LUNGS, PLEURA AND LARGE AIRWAYS: Lung windows show underlying emphysema. There is no superimposed infiltrate, or effusion. No demonstrated pneumothorax. There is a well-defined smooth bordered 0.84 cm noncalcified nodule in the left lung base. This is best seen on axial image 135 and coronal recon image 215. For low-risk or high-risk patients consider a follow-up chest CT at 3 months. If unchanged consider an additional follow-up CT at 18-24 months. Alternatively (or additionally) PET/CT or tissue sampling could be performed. THYROID: No thyroid lesions. HEART AND PERICARDIUM: Heart size is normal. No pericardial effusion. CORONARY ARTERIES: Coronary artery calcification VESSELS: Thoracic aorta is not dilated. MEDIASTINUM AND ALFREDO: No mediastinal or hilar adenopathy. Esophagus is unremarkable. No hiatal hernia. UPPER ABDOMEN: No acute pathology. BONES: No suspicious lytic or blastic abnormality. No demonstrated rib fracture, sternal fracture, vertebral or shoulder fracture CT/Chest without Contrast IMPRESSION: Underlying emphysema without a superimposed infiltrate, pulmonary contusion or effusion There is a 0.4 cm noncalcified well-defined nodule in the left lung base. Follow-up as discussed above No suspicious adenopathy No demonstrated fracture Electronically Signed: Casimiro Morris MD at 9:44 EDT ,
--- OUTSIDE RECORDS SUMMARY | 2023-04-28 08:05 | XMS RPT_ITS | CCD ---
Author Name Unknown Address [address] [place] [address] Organization [facility] Care Team Providers Care Metalsmith Name Role Phone KENTON CLINE, CASSANDRA Contreras Primary Care Physician [phone] DR REYNA AGUILERA DO Attending Unavailable CASSANDRA FUNG MD Primary Care Unavailable Allergies Allergy Classification Reported Allergen(s) Allergy Type Date of Onset Reaction(s) Facility (2 sources) Penicillin; Translations: [penicillin] Drug Allergy [facility] Medications Current Medications Medication Drug Class(es) Dates Sig (Normalized) Sig (Original) acetaminophen 325 mg / HYDROcodone bitartrate 5 mg oral tablet (1 source) Opioid Agonist Start: 10-03-2021 End: 10-06-2021 take 1 tablet by mouth every six hours as needed for pain [facility] 325- 5 mg oral tablet Dose = [...] Blood Pressure Location DR REYNA AGUILERA DO [facility] 02-20-2023 00:28-0500 Body height 195.[address] REYNA AGUILERA DO [facility] 02-20-2023 00:28-0500 Body temperature 97.88 [degF] DR REYNA AGUILERA DO [facility] 02-20-2023 00:28-0500 Body weight [address] REYNA AGUILERA DO [facility] 02-20-2023 00:28-0500 Diastolic Blood Pressure Non-Invasive 74 mm[Hg] DR REYNA AGUILERA DO [facility] 02-20-2023 00:28-0500 Heart rate 55 /min DR REYNA AGUILERA DO [facility] 02-20-2023 00:28-0500 Respiratory rate 20 /min DR REYNA AGUILERA DO [facility] 02-20-2023 00:28-0500 Systolic Blood Pressure Non-Invasive 110 mm[Hg] DR REYNA AGUILERA DO [facility] 10-03-2021 22:55-0400 Diastolic blood pressure 79 mm[Hg] BALDOMERO HERNADEZ DO [facility] 10-03-2021 22:55-0400 Heart rate 51 /min BALDOMERO FROMMELT DO [facility] 10-03-2021 22:55-0400 Reason For Taking VItal Signs BALDOMERO FROMMELT DO [facility] 10-03-2021 22:55-0400 Respiratory rate 16 /min BALDMOERO FROMMELT DO [facility] 10-03-2021 22:55-0400 Systolic blood pressure 121 mm[Hg] BALDOMERO FROMMELT DO [facility] 10-03-2021 21:37-0400 Diastolic blood pressure 78 mm[Hg] BALDOMERO FROMMELT DO [facility] 10-03-2021 21:37-0400 Heart rate 52 /min BALDOMERO FROMMELT DO [facility] 10-03-2021 21:37-0400 Reason For Taking VItal Signs BALDOMERO FROMMELT DO [facility] 10-03-2021 21:37-0400 Respiratory rate 16 /min BALDOMERO FROMMELT DO [facility] 10-03-2021 21:37-0400 Systolic blood pressure 125 mm[Hg] BALDOMERO FROMMELT DO [facility] 10-03-2021 20:03-0400 Diastolic blood pressure 74 mm[Hg] BALDOMERO FROMMELT DO [facility] 10-03-2021 20:03-0400 Heart rate 46 /min BALDOMERO FROMMELT DO [facility] 10-03-2021 20:03-0400 Reason For Taking VItal Signs BALDOMERO FROMMELT DO [facility] 10-03-2021 20:03-0400 Respiratory rate 16 /min BALDOMERO HERNADEZ DO [facility] 10-03-2021 20:03-0400 Systolic blood pressure 116 mm[Hg] BALDOMERO HERNADEZ DO [facility] 10-03-2021 19:01-0400 Body temperature 98.42 [degF] BALDOMERO HERNADEZ DO [facility] 10-03-2021 19:01-0400 Heart rate 73 /min [facility] Encounters Encounter Date Encounter Type Care Provider Facility Start: 02-20-2023 End: 02-20-2023 Emergency department patient visit DR REYNA AGUILERA DO [facility] Start: 02-19-2023 End: 02-20-2023 Emergency department patient visit DR REYNA AGUILERA DO Facility:B Start: 10-03-2021 End: 10-03-2021 Emergency department patient visit BALDOMERO HERNADEZ DO [facility] Payers Date Payer Category Payer Private Health Insurance [id number] 1970 Unknown [id number] Social History Date Type Detail Facility Start: 04-20-2019 Tobacco smoking status Heavy t obacco smoker (finding) [facility] Sex Assigned At Male [facility] Functional Status Date Assessment Result Facility 02-20-2023 Functional Status Independent [facility] 10-03-2021 Functional Status Activity Jet tance Independent [facility] 10-03-2021 Functional Status Standard Safet y ID band on, Allergy Band on, Call device within reach, Bed in low position, Wheels locked, Upper/Half-Length side-rails up, Bedside Cart Locked, Visitor at bedside, Safety level maintained [facility] 10-03-2021 [facility] Mental Status Date Assessment Result Facility 02-20-2023 Mental Status Orientation Oriented x 4 [facility] 02-20-2023 Mental Status [facility] 10-03-2021 Mental Status Orientation Oriented x 4 [facility] 10-03-2021 Mental Status [facility] 10-03-2021 Mental Status [facility] Discharge instructions 02-20-2023 Note Date & [...] block the intestine. Emergency surgery is needed. [id number] [employer] [place] [address], [place] [address]. All rights reserved. This information is not intended as a substitute for professional medical care. Always follow your healthcare professional's instructions. Follow Up Care 02/20/2023 00:06:49 With:JOSSY STALLINGS MD, KAYLAN/Jose D, Surgery Address: [address] [address] [phone] When:2-4 days With:CASSANDRA FUNG MD Address: [facility] [address] [place] [address]- When:2-4 days [facility] Clinical Note 02-20-2023 Note Date & Type Note Facility 02-20-2023 Note Discharge Instructions Thank you for allowing [facility] to assist you with your healthcare needs. [...] Surgery When Within 2-4 days Where: [address] [address] [phone] Follow Up with CASSANDRA FUNG MD When Within 2-4 days Where: [facility] [address] [place] [address]- Allergies penicillin Medications Please ask your primary [...] may report side effects to FDA at 3-178-VLA-8211. What other drugs will affect baclofen? Using baclofen with other drugs that make you drowsy can worsen this effect. Ask your doctor before using opioid medication, a sleeping pill, a muscle relaxer, or medicine for anxiety or seizures. Other drugs may affect baclofen, including prescription and oeuu-jgj-lurzltk medicines, vitamins, and herbal products. Tell your [...] to ensure that the information provided by [employer] ('[employer]') is accurate, up-to-date, and complete, but no guarantee is made to that effect. Drug information contained herein may be time sensitive. [employer] information has been compiled for use by healthcare practitioners and consumers in the [place] and therefore [employer] does not warrant that uses outside of the [place] are appropriate, unless specifically indicated otherwise. [employer] drug information does not endorse drugs, diagnose patients or recommend therapy. [employer] drug information is an informational resource designed [...] effective or appropriate for any given patient. [employer] does not assume any responsibility for any aspect of healthcare administered with the aid of information [employer] provides. The information contained herein is not intended to cover all possible uses, directions, precautions, warnings, drug interactions, allergic reactions, or adverse effects. If you have questions about the drugs you are taking, check with your doctor, nurse or pharmacist. Copyright 2691-7345 [employer] Version: 11.13. Revision Date: 10/17/2022. docusate (oral/rectal) [...] may report side effects to FDA at 8-907-ZSR-8568. What other drugs will affect docusate? Other drugs may affect docusate, including prescription and rdxp-vas-igrzvta medicines, vitamins, and herbal products. Tell your [...] to ensure that the information provided by [employer]') is accurate, up-to-date, and complete, but no guarantee is made to that effect. Drug information contained herein may be time sensitive. [employer] information has been compiled for use by healthcare practitioners and consumers in the [place] and therefore [employer] does not warrant that uses outside of the [place] are appropriate, unless specifically indicated otherwise. [employer] drug information does not endorse drugs, diagnose patients or recommend therapy. [employer] drug information is an informational resource designed [...] effective or appropriate for any given patient. [employer] does not assume any responsibility for any aspect of healthcare administered with the aid of information [employer] provides. The information contained herein is not intended to cover all possible uses, directions, precautions, warnings, drug interactions, allergic reactions, or adverse effects. If you have questions about the drugs you are taking, check with your doctor, nurse or pharmacist. Copyright 5693-8165 [employer] Version: 7.01. Revision Date: 09/08/2022. Education Materials [...] block the intestine. Emergency surgery is needed. 0422-[address] [place] [address]. All rights reserved. This information is not intended as a substitute for professional medical care. Always follow your healthcare professional's instructions. Additional Information VACCINATE! IT SAVES LIVES! Members of the community who have not yet received the COVID-19 vaccine and would like to receive it can visit one of [facility] vaccine clinics. There are many vaccine clinic locations within the [facility]. For locations and available times, please visit www.gettheshot.coronavirus.[place].gov/. It is important to note that some COVID mobile vaccine clinics are held outdoors and may be canceled in rainy or stormy conditions. To learn more about pediatric vaccinations (ages 5-11), we invite you to visit the [facility] webpage. https://www.[facility].org/pages/2 335-Wwkpx-Titydyrkfln-Frequently-Asked -Questions.html To learn more about the COVID-19 vaccine, we invite you to visit the CDC website for a list of frequently asked questions. https://www.cdc.gov/coronavirus/2019-n cov/vaccines/faq.html [facility] Patient Portal Access Instructions: Stay connected with your healthcare team and access your personal medical information anytime with the [facility] Patient Portal. If you would like a full copy of your medical records please contact the [facility] Medical Records Department Sunday through Sunday between 8a.m. and 4:30p.m. Please follow the directions below to access the portal: 1.Access the email account you provided upon registration to the hospital.2.Look for an invitation email from [facility].3.Open the email and access the invitation link: Accept Invitation to [facility].Fill in the required liang to create your account. Sign into www.[employer] with your username and password that you [...] you will allow to register on the [facility] Patient Portal for access to your information. You can also access the [facility] Patient Portal on the WebXiom jennifer. Simply click on Health Records under Health Data and then click on the [employer] logo. HOW TO SAFELY DISPOSE OF PRESCRIPTION [...] Call your local pharmacy or go to http://Progeny Solar.Space Monkey/2P7Dw3z to find one close to you.3.Make use of household items: Use cat litter or old coffee grounds to dispose medications if other options are not available. Mix your drugs with these household products, seal them in an airtight container and throw it into the garbage. Call [facility]: [phone] to be sure your drugs can be [...] aware that I should contact my doctor. Patient/Detention Worker Signature: _ Date/Time: Relationship to Patient: Witness Name/Signature: Date/Time: [facility] Discharge instructions 10-04-2021 Note Date & Type [...] black or maroon color) Unexpected vaginal bleeding [id number] [employer] [place] [address]. All rights reserved. This information is not intended as a substitute for professional medical care. Always follow your healthcare professional's instructions. Follow Up Care 10/03/2021 18:50:42 With:ARTIS LEE MD Address: [facility] [address] [place] [id number] [phone] When:2-4 days With:CASSANDRA FUNG MD Address: [facility] [address] [place] [address]- When:2-4 days [facility] Emergency department Discharge summary 10-03-2021 Note Date & Type Note Facility 10-03-2021 Emergency department Discharge summary Discharge Instructions Thank you for allowing [facility] to assist you with your healthcare needs. [...] Within 2-4 days Where: [facility] [address] [place] [address]- [phone] Follow Up with CASSANDRA FUNG MD When Within 2-4 days [facility] [address] [place] [address]- Allergies penicillin Medications Please ask your primary doctor or pharmacist before taking any other medication not listed, including over the counter drugs, herbal medications, vitamins and or supplements as they may interact with your home medications. What How Much When Why Instructions Last Dose New acetaminophen-hydrocodone ([facility] 325- 5 mg oral tablet) 1 tab(s) [...] black or maroon color) Unexpected vaginal bleeding 3973-[address] [employer] [address] [place] [address]. All rights reserved. This information is not intended as a substitute for professional medical care. Always follow your healthcare professional's instructions. Additional Information VACCINATE! IT SAVES LIVES! Members of the community who have not yet received the COVID-19 vaccine and would like to receive it can visit one of [facility] vaccine clinics. There are many vaccine clinic locations within the [facility]. For locations and available times, please visit www.gettheot.coronavirus.[place].o rg. It is important to note that some COVID mobile vaccine clinics are held outdoors and may be canceled in rainy or stormy conditions. To learn more about pediatric vaccinations (ages 5-11), we invite you to visit the [facility] webpage. https://www.[facility].org/pa ges/1368-Qrdrg-Znkiczmxssm-Freque fqcs-Myjxl-Btzuhxocr.html To learn more about the COVID-19 vaccine, we invite you to visit the [facility] website for a list of frequently asked questions. https://cushing.Sirnaomics/assets/Eri do-kjo-Wlkfnetl/tncdl-Tgdgsxw-Drq quently_Asked-Questions.pdf [facility] Patient Portal Access Instructions: Stay connected with your healthcare team and access your personal medical information anytime with the [facility] Patient Portal. If you would like a full copy of your medical records please contact the [facility] Medical Records Department Sunday through Sunday between 8a.m. and 4:30p.m. Please follow the directions below to access the portal: 1.Access the email account you provided upon registration to the [facility].2.Look for an invitation email from [facility].3.Open the email and access the invitation link: Accept Invitation to [facility].Fill in the required liang to create your account. Sign into www.peytonReset Therapeutics with your username and password that you [...] you will allow to register on the [facility] Patient Portal for access to your information. You can also access the [facility] Patient Portal on the HeyLets. Simply click on Health Records under Health Data and then click on the [employer] logo. HOW TO SAFELY DISPOSE OF PRESCRIPTION [...] Call your local pharmacy or go to http://Pro[employer]y Solar.Space Monkey/7L4Wg9r to find one close to you.3.Make use of household items: Use cat litter or old coffee grounds to dispose medications if other options are not available. Mix your drugs with these household products, seal them in an airtight container and throw it into the garbage. Call [facility]: [phone] to be sure your drugs can be [...] aware that I should contact my doctor. Patient/Detention Worker Signature: Date/Time: Relationship to Patient: ____ Witness Name/Signature: Date/Time: [facility] Clinical Note 10-03-2021 Note Date & Type [...] Sign Date: 10/03/2021 10:39:21 PM Ordering Provider: [facility] Clinical Note 10-03-2021 Note Date & Type [...] 10/03/2021 10:39:21 PM Ordering Provider: BALDOMERO HERNADEZ [facility] Evaluation + Plan note Note Date & Type Note Facility Evaluation + Plan note No data available for this section [facility] Note Note Date & Type Note Facility Note BALDOMERO HERNADEZ DO: SIGN, VERIFY Event Display: EKG [ED AOH] - CV Authored Date: [id number] [facility] Summary note Note Date & Type Note Facility Summary note PARTHA Mahan: PERFORM Event Display: Patient Summary Documents Authored Date: [id number] [facility] Summary Purpose Family History No Family History Records Found Advance Directives No Advanced Directives Records Found Additional Source Comments Care Team (unrecognized sect ion and content) Care Team Personnel Name: CASSANDRA FUNG MD Member Role: Primary Care Physician Address: Address: [facility] [address] [place], [place] [address] Name: BALDOMERO HERNADEZ DO Position: ED Physician Member Role: ED Physician Address: Address: [address] [place] [address]- Name: Kellen Aguilar RN Position: ED RN Member Role: ED RN Patient Care team informatio n (unrecognized section and content) Care Team Personnel Name: CASSANDRA FUNG MD Member Role: Primary Care Physician Address: Address: [facility] [address] [place], [place] [address] Name: REYNA AGUILERA DO Position: ED Physician Member Role: ED Physician Address: Address: [facility] [address] [place] [address]- (unrecognized sect ion and content) No Status [...] BE BASED ON THE PRIMARY CLINICAL RECORDS. [facility] [employer] provides no warranty or guarantee of the accuracy or completeness of information in this document.
== END | disposition home or self-care (01) ==
LOC: CT 08:03
PROVIDERS: PCP Family Medicine; Referring Provider Family Medicine; Visit Provider Family Medicine
DX: M54.6 Pain in thoracic spine (principal)
CPT/HCPCS: 71250

== ENCOUNTER → 2023-07-20 | Outpatient (CLI) | payer MEDICAID, SELFPAY ==
--- NOTE | 2023-07-20 06:39 | CT_ITS ---
STUDY: CT CHEST WITH CONTRAST REASON FOR EXAM: Male, 52 years old. Lung nodule RADIATION DOSAGE (If Supplied By Facility): CTDIvol = ( 13.42 ) mGy, DLP = ( 339.08 ) mGycm TECHNIQUE: Transaxial imaging was performed pre-and post contrast administration of IV 100mL Isovue-370. Multiplanar coronal and sagittal images were reformatted. Individualized dose optimization techniques were used for this CT. COMPARISON: April 28, 2023. FINDINGS: There is stable 0.9 x 0.9 cm left lower lobe nodule, series 4 image 142. There is no demonstrated pleural abnormality. Normal heart and pericardium. There is calcified anterior mediastinal lymph node. Normal hilar regions. Normal enhanced and unenhanced pulmonary arteries. Normal aorta arch and descending thoracic aorta. Normal osseous structures. There is no demonstrated abnormality of the visualized upper abdomen. CT/Chest WITH Contrast IMPRESSION: Stable left lower lobe nodule. Recommend continued short-term follow-up in 3-6 months and/or PET scan. Electronically Signed: Osito Goldman MD at 10:06 EDT ,
== END | disposition home or self-care (01) ==
PROVIDERS: PCP Family Medicine; Referring Provider Family Medicine; Visit Provider Family Medicine
DX: R91.1 Solitary pulmonary nodule (principal)
CPT/HCPCS: 71260; Q9967

== ENCOUNTER → 2023-11-08 | Outpatient (CLI) | payer MEDICAID, SELFPAY ==
--- NOTE | 2023-11-08 17:49 | CT_ITS ---
EXAM: CT CHEST WITH INTRAVENOUS CONTRAST CLINICAL INDICATION: Previously Noted nodule TECHNIQUE: Helically acquired images were obtained of the chest with intravenous contrast. This CT exam was performed using one or more of the following dose reduction techniques: automated exposure control, adjustment of the mA and/or kV according to patient size, and/or use of iterative reconstruction technique. CONTRAST: IV 100mL Isovue-300 RADIATION DOSE: CTDIvol = 13.03 mGy, DLP = 277.32 mGy-cm. COMPARISON: July 20, 2023. April 28, 2023. On my measurement of the April 2023 nodule it was by 9 mm x 10 mm 7 mm. FINDINGS: LUNGS AND PLEURAL SPACES: Stable 9 mm x 10 mm x 7 mm nodule in the left lung base compared to July 20, 2023 and April 28, 2023. No spiculated margins. No additional nodules. No consolidation or edema. No pleural effusion or thickening. No pneumothorax. HEART: Unremarkable. Heart size is normal. No pericardial effusion. No visible coronary artery calcifications. MEDIASTINUM: Unremarkable. No mediastinal or hilar adenopathy. Esophagus is unremarkable. No hiatal hernia. THYROID: Unremarkable. No thyroid lesions. BONES/JOINTS: Unremarkable. No suspicious lytic or blastic abnormality. UPPER ABDOMEN: Normal adrenals and mid to distal pancreas, partially included liver, fully included spleen, upper poles of the kidneys. VASCULATURE: Unremarkable. Thoracic aorta is non-dilated. No thoracic aortic dissection. No obvious central pulmonary embolism although this study was not performed with the pulmonary embolism protocol. CT/Chest WITH Contrast IMPRESSION: Stable 1 cm maximum diameter well-circumscribed mildly lobulated left lower lobe nodule compared to exams back to April 28, 2023. The lungs are hyperinflated with suspicion of subtle COPD. Recommendations according to Fleischner guidelines : (Using criteria of single greater than 8 mm solid pulmonary nodule patient 35 and older with high risk of malignancy, stable for 3-17 months): For high-risk patients consider a follow-up chest CT at 12-18 months. If unchanged, no further follow-up. Electronically Signed: Bryanna Chavarria MD at 19:52 EDT ,
== END | disposition home or self-care (01) ==
LOC: CT 17:47
PROVIDERS: PCP Family Medicine; Referring Provider Family Medicine; Visit Provider Family Medicine
DX: R91.1 Solitary pulmonary nodule (principal)
CPT/HCPCS: 71260; Q9967

== ENCOUNTER → 2024-10-20 | Outpatient (CLI) | payer MEDICAID, SELFPAY ==
[2024-10-20 15:54] LABS: AST(SGOT) 20 U/L (<=37); Alanine Aminotransfer ALT/SGPT 17 U/L (<=46); Albumin, Serum 4.4 g/dL (3.5-5.0); Alkaline Phosphatase 67 U/L (40-129); Anion Gap 11 (5-15); BUN 17 mg/dL (4-19); BUN/Creat Ratio 19.0 RATIO (10-20); Calcium,Total 9.4 mg/dL (7.6-11.0); Carbon Dioxide 27.1 mmol/L (21.0-32.0); Chloride 103 mmol/L (98-108); Cholesterol 126 mg/dL (<=200); Globulin 2.7 g/dL (2.2-4.2); Glucose 93 mg/dL (70-99); Low Density Lipoprotein Calc. 71 mg/dL; PSA,Total - Annual Screen 1.22 ng/mL (0.02-4.00); Potassium 3.8 mmol/L (3.3-5.1); Triglycerides 36 mg/dL; Very Low Density Lipoprotein 7 mg/dL (5-40); cholesterol:hdl ratio screen 2.63
[2024-10-20 16:23] LABS: Hematocrit 44.2 % (40-54); Hemoglobin 15.0 g/dL (13.0-16.5); Immature Granulocytes Count 0.030 X10^3/uL (0.0-0.0); Mean Corp Hgb Conc 33.9 g/dL (32-36); Mean Corpuscular Volume 87.2 fL (80-94); Mean Platelet Vol. 11.6 fl (6.2-12.0); NRBC Flagged by Analyzer 0 % (0-5); Platelet Count 208 K/mm3 (150-450); RBC Distribution Width CV 12.8 % (11.6-14.6); RBC Distribution Width SD 40.6 fl (35.1-43.9); Red Blood Count 5.07 M/mm3 (4.6-6.2); White Blood Count 7.7 K/mm3 (4.4-11.0)
[2024-10-22 13:08] LABS: PROEL- A/G Ratio 1.5 (0.7-1.7); PROEL- Albumin 4.1 g/dL (2.9-4.4); PROEL- Alpha-1 Globulin 0.2 g/dL (0.0-0.4); PROEL- Alpha-2 Globulin 0.6 g/dL (0.4-1.0); PROEL- Beta Globulin 0.9 g/dL (0.7-1.3); PROEL- Gamma Globulin 1.1 g/dL (0.4-1.8); PROEL- Globulin, Total 2.8 g/dL (2.2-3.9); PROEL- TOTAL PROTEIN 6.9 g/dL (6.0-8.5); PROEL-M-Spike Not Observed g/dL (Not Observed); QNTFERON TB Mitogen Value > 10.00 IU/mL (.); QNTFERON TB Nil Value 0.07 IU/mL (.); QNTFERON TB1+ Ag Value 0.07 IU/mL (.); QNTFERON TB2+ Ag Value 0.06 IU/mL (.); QNTIFERON TB Positive Criteria Negative (Negative)
[2024-10-22 16:09] LABS: ANTINUCLEAR ANTIBODIES DIRECT Negative (Negative)
== END | disposition home or self-care (01) ==
LOC: MTLAB 12:38
PROVIDERS: PCP Family Medicine; Referring Provider Family Medicine; Visit Provider Family Medicine
DX: Z00.00 Encounter for general adult medical examination without abnormal findings (principal); J43.9 Emphysema, unspecified; R63.4 Abnormal weight loss; R91.1 Solitary pulmonary nodule; G47.9 Sleep disorder, unspecified; Z12.5 Encounter for screening for malignant neoplasm of prostate
CPT/HCPCS: 84153; 36415; 80053; 80061; 84165; 84443; 85025; 85652; 86038; 86431; 86480; G0103

== ENCOUNTER → 2024-11-10 | Outpatient (CLI) | payer MEDICAID, SELFPAY ==
--- NOTE | 2024-11-10 06:14 | CT_ITS ---
PROCEDURE: CHEST WITHOUT CONTRAST 11/10/2024 REASON FOR EXAM: LUNG NODULE TECHNIQUE: Chest CT without contrast. Coronal and Sagittal reconstruction series were provided. One or more dose reduction techniques were used (e.g., Automated exposure control, adjustment of the mA and/or kV according to patient size, use of iterative reconstruction technique RADIATION DOSE SUMMARY: CTDlvol: 7.56 mGy DLP: 328.55 mGycm COMPARISON: CT chest with contrast, 11/08/2023. FINDINGS: Lower neck:The thyroid gland is normal. There is no supraclavicular lymphadenopathy. Mediastinum:There are multiple stable reactive mediastinal lymph nodes. Heart and thoracic aorta:The heart size is normal. There is no pericardial effusion. There is minimal calcific vascular disease of the thoracic aorta and coronary arteries. Esophagus:Normal. Upper Abdomen:Limited unenhanced images of the upper abdomen are unremarkable. Chest wall:The soft tissues of the chest wall appear unremarkable. There is no axillary lymphadenopathy. There is anterior wedging of the superior endplate and a large Schmorl's node in the superior endplate of T8. Lungs, airways and pleura: There is stable pleural-parenchymal scarring in both lung apices. There is a 4 x 4 mm subpleural ground-glass opacity nodule in the upper lobe of the right lung (image 70). There is a stable 9 x 8 mm soft tissue density nodule in the lower lobe of the left lung (image 129). There are no pleural effusions. CT/Chest without Contrast IMPRESSION: 1. Subpleural ground-glass opacity nodule in the upper lobe of the right lung, not present previously. 2. Stable soft tissue density nodule in the lower lobe of the left lung. 3. Other findings as noted, not significantly changed. Recommendation: Follow up low-dose chest CT in six-months. Reading Location: [place] [id number]
--- OUTSIDE RECORDS SUMMARY | 2024-11-10 06:14 | XMS RPT_ITS ---
Author Name Auto Generated Organization OHIP PROBLEMS No Problem Records Found PROCEDURES No Procedure Records Found RESULTS ALLERGIES No Allergies Records Found ENCOUNTERS No Encounter Records Found PAYERS No Payer Records Found
== END | disposition home or self-care (01) ==
LOC: CT 06:10
PROVIDERS: PCP Family Medicine; Referring Provider Family Medicine; Visit Provider Family Medicine
DX: R91.1 Solitary pulmonary nodule (principal); J43.9 Emphysema, unspecified
CPT/HCPCS: 71250; 94060; 94726; 94729